=== PATIENT | female | born 1950 | race Caucasian/White ===

== ENCOUNTER → 2018-07-21 | Outpatient (CLI) | payer MEDICARE, BC ==
[~2018-07-21] MED LIST: AMLO5TAB4 PO; BUPIVACAINE MPF 0.5% 10 ML VIAL for KCIC. IM ONE; BUPIVACAINE MPF 0.5% 10 ML VIAL for KCIC. ONE; HYDR-2145 PO; IOHEXOL 300 MG/ML 50 ML VIAL. INT ART ONE; IOHEXOL 300 MG/ML 50 ML VIAL. ONE; LEVO125T5 PO; LIDOCAINE 1% Multi-Dose 20 ML VIAL. ID ONE; LOSA1TAB22 PO; PROP20TA PO; RAMI10CA53 PO; methylPREDNISolone ACETATE 40 MG/ML VIAL. INT ART ONE; methylPREDNISolone ACETATE 80 MG/ML VIAL. ONE
--- NOTE | 2018-07-21 16:24 | KCIC ---
PROCEDURE Therapeutic right hip injection using fluoroscopic guidance. HISTORY Hip pain. TECHNIQUE The procedure was explained to the patient as were potential risks, including infection, bleeding or allergic reaction. All questions were answered. Informed written and verbal consent was obtained. The hip was prepped and draped in the usual sterile manner. Following administration of local anesthetic, a 22-gauge spinal needle was advanced into the hip joint without difficulty, with care taken to avoid the vascular structures. Stylet was removed and following negative aspiration, a mixture of 4 cc Omnipaque-300, 2 cc (80 mg) Depo-Medrol, 4 cc bupivacaine and 4 cc 1% lidocaine were injected without difficulty. Initial injection demonstrated some extra-articular accumulation, following needle readjustment the injection was seen to be distributed throughout the intra-articular space. The needle was removed. There was good hemostasis at the injection site. The patient left in stable condition without immediate complication. A single spot image was obtained. FLUOROSCOPY TIME: 43 seconds Electronically signed by: Shravan Rivera MD (07/21/2018 4:20 PM) [id number]
== END | disposition home or self-care (01) ==
LOC: KCIC 12:49
PROVIDERS: ATTEND Internal Medicine
DX: M16.11 Unilateral primary osteoarthritis, right hip (principal); M25.551 Pain in right hip; G89.29 Other chronic pain; J44.9 Chronic obstructive pulmonary disease, unspecified; I10 Essential (primary) hypertension; Z87.19 Personal history of other diseases of the digestive system; Z88.2 Allergy status to sulfonamides
CPT/HCPCS: 20610; 77002; J1040; Q9967